=== PATIENT | female | born 1935 | race Caucasian/White ===

== ENCOUNTER → 2016-07-18 | Outpatient (CLI) | payer MEDICARE, MEDICAID ==
[~2016-07-18] MED LIST: ACT35 PO; ASPI-1035 PO; DOCU100T8 PO; ESOM20CA PO; GEMF600T3 PO; METF500T4 PO; RISE5TAB PO
== END | disposition home or self-care (01) ==
LOC: CARD 08:16
PROVIDERS: ATTEND Psychiatry & Neurology Neurology
DX: R41.3 Other amnesia (principal)

== ENCOUNTER 2016-11-01 09:03 | Inpatient (IN) | payer MEDICARE, MEDICAID ==
[~2016-11-01] VITALS: Ht 154.9 cm; Wt 56.4 kg
[~2016-11-01 09:03] MED LIST changes: +ACT5 PO; -ASPI-1035 PO; +ASPI-1159 PO; -RISE5TAB PO
[2016-11-01 09:46] LABS: BASOPHILS % 0.8 % (0.0-2.0); EOSINOPHILS % 11.2 % (0.0-5.0); HEMATOCRIT. 41.2 % (36.0-48.0); HEMOGLOBIN. 13.5 g/dL (12.0-16.0); LYMPHOCYTES % 26.6 % (20.0-50.0); MEAN CORPUSCULAR HEMOGLOBIN 26.2 pg (28.0-32.0); MEAN CORPUSCULAR VOLUME 79.9 fL (81.0-99.0); MEAN PLATELET VOLUME 7.6 fl (7.4-10.4); MONOCYTES % 8.9 % (2.0-8.0); NEUTROPHILS % 52.5 % (40.0-76.0); PLATELET 262 x1000/uL (130-400); RED BLOOD CELL COUNT 5.16 mill/uL (4.2-5.4); RED CELL DISTRIBUTION WIDTH 14.7 % (11.6-14.6)
[2016-11-01] MEDS ORDERED: ONDANSETRON HCL 4MG/2ML VIAL IV STA (09:49)
[2016-11-01] MEDS ORDERED: MORPHINE SULFATE 4 MG/ML CPJ (NOT FOR IM USE) IV STA (09:49)
[2016-11-01] MEDS ORDERED: ASPIRIN 81MG TABLET PO STA (09:49)
[2016-11-01] MEDS ORDERED: NITROGLYCERIN OINT 1GM/INCH UDPKT TD STA (09:49)
[2016-11-01 09:51] LABS: INR 1.1; PARTIAL THROMBOPLASTIN TIME 27.4 sec (23.4-31.0); PROTHROMBIN TIME 11.1 sec (9.4-11.6)
[2016-11-01 09:54] LABS: CARBON DIOXIDE 30 mEq/L (21-32); CHLORIDE 106 mEq/L (98-107)
[2016-11-01 10:00] LABS: CREATINE KINASE 182 IU/L (26-192); TROPONIN I < 0.02 ng/mL (0.00-0.04)
[2016-11-01] MEDS ORDERED: DIPHENHYDRAMINE 25MG CAPSULE PO ONE (10:00)
[2016-11-01 10:02] LABS: CREATINE KINASE MB FRACTION 2.6 ng/mL (0.5-3.6)
[2016-11-01 10:12] LABS: CLARITY URINE CLEAR (CLEAR); COLOR URINE YELLOW (YELLOW); GLUCOSE URINE NEGATIVE (NEGATIVE); KETONES URINE NEGATIVE (NEGATIVE); LEUKOCYTE ESTERASE URINE NEGATIVE (NEGATIVE); NITRITE URINE NEGATIVE (NEGATIVE); OCCULT BLOOD URINE NEGATIVE (NEGATIVE); PH URINE 7.5 (4.5-8.0); PROTEIN URINE NEGATIVE (NEGATIVE); SPECIFIC GRAVITY URINE 1.016 (1.005-1.030); UROBILINOGEN URINE 0.2 E.U./dL (0.2-1.0)
[2016-11-01] MEDS ORDERED: HYDROCODONE/ACETAMINOPHEN 5/325MG TABLET PO PRN (16:45)
[2016-11-01] MEDS ORDERED: ONDANSETRON HCL 4MG/2ML VIAL IV PRN (16:45)
[2016-11-01] MEDS ORDERED: ACETAMINOPHEN 325MG TABLET PO PRN (16:45)
[2016-11-01] MEDS ORDERED: IPRATROPIUM/ALBUTEROL 0.5-3(2.5)MG/3ML NEB INH PRN (16:45)
[2016-11-01] MEDS ORDERED: CLONIDINE 0.1MG TABLET PO PRN (16:45)
[2016-11-01] MEDS ORDERED: ENOXAPARIN 40MG/0.4ML SYR SUBCUT SCH (18:00)
[2016-11-01 20:00] VITALS: BP 95/54
[2016-11-01 23:35] LABS: CREATINE KINASE 134 IU/L (26-192); TROPONIN I < 0.02 ng/mL (0.00-0.04)
[2016-11-02] VITALS: BP 96/57
[2016-11-02 04:00] VITALS: BP 104/54
[2016-11-02 07:53] LABS: CREATINE KINASE 123 IU/L (26-192); HDL CHOLESTEROL 43 mg/dL (40-59); LDL CHOLESTEROL 73 mg/dL (5-100); T4 FREE 0.94 ng/dL (0.76-1.46); TROPONIN I < 0.02 ng/mL (0.00-0.04)
[2016-11-02 08:00] VITALS: BP 111/68
[2016-11-02] MEDS ORDERED: ASPIRIN 81MG EC TABLET PO SCH (09:00)
[2016-11-02] MEDS ORDERED: IOHEXOL-350 100 ML BOTTLE ONE (11:18)
[2016-11-02] MEDS ORDERED: SODIUM CHLORIDE 0.9% 10ML VIAL ONE (11:18)
[2016-11-02 12:00] VITALS: BP 104/57
[2016-11-02] MEDS ORDERED: PREDNISONE 20MG TABLET PO NR (12:00)
[2016-11-02 16:00] VITALS: BP 105/69
[2016-11-02 17:21] VITALS: BP 105/69
[2016-11-02] MEDS ORDERED: HYDROCORTISONE 1% OINT 28.35GM TOP SCH (21:00)
== END 2016-11-02 18:20 | disposition home or self-care (01) | DRG 313 ==
LOC: ER 09:03 → 7WST 10:38 → EDBEDREQ 10:40 → ENRESERV 15:35
PROVIDERS: ADMIT Internal Medicine; ATTEND Internal Medicine
DX: R07.89 Other chest pain (principal); E11.9 Type 2 diabetes mellitus without complications; I10 Essential (primary) hypertension; E78.00 Pure hypercholesterolemia, unspecified; E78.5 Hyperlipidemia, unspecified; L50.9 Urticaria, unspecified; G89.29 Other chronic pain; Z79.82 Long term (current) use of aspirin; Z79.84 Long term (current) use of oral hypoglycemic drugs; Z79.899 Other long term (current) drug therapy; Z87.442 Personal history of urinary calculi
CPT/HCPCS: 36415; 71010; 71275; 80053; 80061; 81003; 82550; 82553; 82962; 83690; 83880; 84439; 84443; 84484; 85025; 85610; 85730; 93005; 93306; 96374; 96375; 99291; A4216; J1650; J2270; J2405; J7512; Q0163; Q9967

== ENCOUNTER 2017-01-04 03:33 | Emergency (ER) | payer MEDICARE, MEDICAID ==
[~2017-01-04] VITALS: Ht 154.9 cm; Wt 61.0 kg
[~2017-01-04 03:33] MED LIST changes: -ACT35 PO
[2017-01-04] MEDS ORDERED: DIPHENHYDRAMINE 25MG CAPSULE PO ONE (04:45)
[2017-01-04 05:19] VITALS: BP 128/71
== END 2017-01-04 05:20 | disposition home or self-care (01) ==
LOC: ER 03:34
DX: T78.40XA Allergy, unspecified, initial encounter (principal); E78.00 Pure hypercholesterolemia, unspecified; E11.9 Type 2 diabetes mellitus without complications; F17.200 Nicotine dependence, unspecified, uncomplicated; Z79.82 Long term (current) use of aspirin
CPT/HCPCS: 99283; Q0163

== ENCOUNTER → 2018-04-04 | Outpatient (CLI) | payer MEDICAID, MEDICARE ==
[~2018-04-04] MED LIST changes: -GEMF600T3 PO; +GEMF600T4 PO; +METF-414 PO; -METF500T4 PO
== END | disposition home or self-care (01) ==
LOC: MRI 09:52
PROVIDERS: ATTEND Neurological Surgery
DX: M48.02 Spinal stenosis, cervical region (principal); M50.222 Other cervical disc displacement at C5-C6 level
CPT/HCPCS: 72141

== ENCOUNTER → 2018-11-05 | Outpatient (CLI) | payer MEDICARE, MEDICAID ==
[~2018-11-05] MED LIST changes: -ASPI-1159 PO; +ASPI-1393 PO; -GEMF600T4 PO; +GEMF600T5 PO
== END | disposition home or self-care (01) ==
LOC: MRI 08:28
PROVIDERS: ATTEND Neurological Surgery
DX: M48.02 Spinal stenosis, cervical region (principal)
CPT/HCPCS: 72141

== ENCOUNTER 2018-12-08 06:01 | Inpatient (IN) | payer MEDICARE, MEDICAID ==
[~2018-12-08] VITALS: Ht 153.7 cm; Wt 62.6 kg
[2018-12-08] VITALS (37 sets, daily range): BP systolic 84–142; BP diastolic 47–86
[~2018-12-08 06:01] MED LIST changes: -ACT5 PO; +CLON0.5T23 PO; -ESOM20CA PO; +OMEP20CA5 PO
[2018-12-08] MEDS ORDERED: LACTATED RINGERS 1,000 ML IV SCH (07:25)
[2018-12-08] MEDS ORDERED: LIDOCAINE HCL/EPINEPHRINE 1%-EPI 1:100,000 20 ML VIAL ONE (07:50)
[2018-12-08] MEDS ORDERED: NORMAL SALINE 0.9% 10 ML SYR ONE (07:50)
[2018-12-08] MEDS ORDERED: THROMBIN (BOVINE) 5000 UNITS/VIAL TOP ONE (07:50)
[2018-12-08] MEDS ORDERED: BACITRACIN 15GM TUBE TOP ONE (07:50)
[2018-12-08] MEDS ORDERED: BACITRACIN 50,000 UNITS/VIAL ONE (07:51)
[2018-12-08] MEDS ORDERED: SUCCINYLCHOLINE CHLORIDE 200MG/10ML IV ONE (09:09)
[2018-12-08] MEDS ORDERED: MIDAZOLAM HCL 2 MG/2 ML VIAL ONE ×2 (09:10→10:35)
[2018-12-08] MEDS ORDERED: LIDOCAINE HCL/PF 1% 10 MG/ML 5ML VIAL ONE (09:10)
[2018-12-08] MEDS ORDERED: FENTANYL CITRATE/PF 50MCG/ML 2ML VIAL ONE (09:10)
[2018-12-08] MEDS ORDERED: PROPOFOL 200MG/20ML VIAL IV ONE (09:11)
[2018-12-08] MEDS ORDERED: NICARDIPINE 100 MG in SODIUM CHLORIDE 0.9% 60 ML IV PRN (10:15)
[2018-12-08] MEDS ORDERED: HYDROCODONE/ACETAMINOPHEN 5/325MG TABLET PO PRN ×2 (10:15→13:30)
[2018-12-08] MEDS ORDERED: ONDANSETRON HCL 4MG/2ML INJ IV PRN ×2 (10:15→13:30)
[2018-12-08] MEDS ORDERED: CEFAZOLIN SODIUM 1000MG/VIAL ONE (10:20)
[2018-12-08] MEDS ORDERED: SODIUM CHLORIDE 0.9% 10ML VIAL ONE (10:20)
[2018-12-08] MEDS ORDERED: ROCURONIUM BROMIDE 10MG/ML VIAL 5ML IV ONE (10:59)
[2018-12-08] MEDS ORDERED: GLYCOPYRROLATE 0.2 MG/ML 2ML VIAL ONE (12:10)
[2018-12-08] MEDS ORDERED: NALOXONE INJ IV PRN (13:15)
[2018-12-08] MEDS ORDERED: DIPHENHYDRAMINE INJ IV PRN (13:15)
[2018-12-08] MEDS ORDERED: ONDANSETRON INJ IV PRN (13:15)
[2018-12-08] MEDS: DEXT 5%/LACTATED RINGERS 1,000 ML IV SCH (13:26)
[2018-12-08] MEDS: DEXAMETHASONE 4MG/ML 1ML VIAL IV SCH ×2 (13:26→17:46)
[2018-12-08] MEDS ORDERED: NA PHOS,M-B/NA PHOS,DI-BA ENEMA 118ML PR PRN (13:30)
[2018-12-08] MEDS ORDERED: DOCUSATE SODIUM 100MG CAPSULE PO PRN (13:30)
[2018-12-08] MEDS ORDERED: LORAZEPAM 0.5MG TABLET PO PRN (13:30)
[2018-12-08] MEDS ORDERED: CLONIDINE 0.1MG TABLET PO PRN (13:30)
[2018-12-08] MEDS ORDERED: IPRATROPIUM/ALBUTEROL 0.5-3(2.5)MG/3ML NEB NEB PRN (13:30)
[2018-12-08] MEDS ORDERED: GUAIFENESIN 200MG/10ML SUGAR FREE UDC PO PRN (13:30)
[2018-12-08] MEDS ORDERED: DEXTROSE 50% WATER 50ML SYRINGE IV PRN (13:30)
[2018-12-08] MEDS ORDERED: MAGNESIUM/ALUMINUM HYDROXIDE/SIMETHICONE 30ML UDC PO PRN (13:30)
[2018-12-08] MEDS ORDERED: ACETAMINOPHEN 650MG SUPP PR PRN (13:30)
[2018-12-08] MEDS ORDERED: DIPHENHYDRAMINE 50MG/ML VIAL IV PRN (13:30)
[2018-12-08] MEDS ORDERED: MORPHINE PCA 50MG/50ML IV PRN (14:00)
[2018-12-08] MEDS ORDERED: CEFAZOLIN SODIUM 1000MG/VIAL IV SCH (14:00)
[2018-12-08] MEDS: CEFAZOLIN 1000MG PREMIX 50 ML IV SCH ×2 (14:04→21:25)
[2018-12-08] MEDS: BLOOD SUGAR DIAGNOSTIC STRIP TEST SCH ×2 (14:08→19:02)
[2018-12-08] MEDS: FAMOTIDINE 20MG/2ML VIAL IV SCH (14:10)
[2018-12-08] MEDS: INSULIN LISPRO 100 UNITS/ML SUBCUT SCH ×2 (14:10→19:05)
[2018-12-08 15:09] LABS: HEMATOCRIT. 38.4 % (36.0-48.0); HEMOGLOBIN. 12.7 g/dL (12.0-16.0); MEAN CORPUSCULAR HEMOGLOBIN 25.4 pg (28.0-32.0); MEAN CORPUSCULAR VOLUME 77.1 fL (81.0-99.0); MEAN PLATELET VOLUME 8.1 fl (7.4-10.4); PLATELET 239 x1000/uL (130-400); RED BLOOD CELL COUNT 4.99 mill/uL (4.2-5.4); RED CELL DISTRIBUTION WIDTH 14.8 % (11.6-14.6)
[2018-12-08 15:15] LABS: CHLORIDE 108 mEq/L (98-107)
[2018-12-08 16:12] LABS: PLATELET ESTIMATE NORMAL
[2018-12-08 17:58] LABS: CLARITY URINE CLEAR (CLEAR); COLOR URINE YELLOW (YELLOW); KETONES URINE NEGATIVE (NEGATIVE); LEUKOCYTE ESTERASE URINE NEGATIVE (NEGATIVE); NITRITE URINE NEGATIVE (NEGATIVE); OCCULT BLOOD URINE 1+ (NEGATIVE); PROTEIN URINE NEGATIVE (NEGATIVE); SPECIFIC GRAVITY URINE 1.016 (1.005-1.030); UROBILINOGEN URINE 0.2 E.U./dL (0.2-1.0)
[2018-12-08 18:16] LABS: *BARBITURATES SCREEN URINE NEGATIVE (NEGATIVE); CANNABINOID URINE SCREEN NEGATIVE (NEGATIVE); METHADONE URINE SCREEN NEGATIVE (NEGATIVE); OPIATES URINE SCREEN PRESUMTIVE POSITIVE (NEGATIVE); PHENCYCLIDINE URINE SCREEN NEGATIVE (NEGATIVE)
[2018-12-08 18:17] LABS: *AMPHETAMINES SCREEN URINE NEGATIVE (NEGATIVE); *BENZODIAZEPINES SCREEN URINE PRESUMTIVE POSITIVE (NEGATIVE); *COCAINE SCREEN URINE NEGATIVE (NEGATIVE)
[2018-12-09] VITALS (25 sets, daily range): BP systolic 80–126; BP diastolic 42–80
[2018-12-09] MEDS: DEXAMETHASONE 4MG/ML 1ML VIAL IV SCH ×3 (00:43→12:23)
[2018-12-09] MEDS: DEXT 5%/LACTATED RINGERS 1,000 ML IV SCH ×3 (00:44→16:10)
[2018-12-09] MEDS: INSULIN LISPRO 100 UNITS/ML SUBCUT SCH ×5 (00:50→23:21)
[2018-12-09 05:28] LABS: HEMATOCRIT. 36.7 % (36.0-48.0); HEMOGLOBIN. 11.7 g/dL (12.0-16.0); MEAN CORPUSCULAR HEMOGLOBIN 24.9 pg (28.0-32.0); MEAN CORPUSCULAR VOLUME 78.3 fL (81.0-99.0); MEAN PLATELET VOLUME 8.3 fl (7.4-10.4); PLATELET 236 x1000/uL (130-400); RED BLOOD CELL COUNT 4.69 mill/uL (4.2-5.4); RED CELL DISTRIBUTION WIDTH 15.1 % (11.6-14.6)
[2018-12-09 05:34] LABS: CHLORIDE 107 mEq/L (98-107)
[2018-12-09 05:44] LABS: LDL CHOLESTEROL 63 mg/dL (5-100)
[2018-12-09 05:46] LABS: T4 FREE 1.18 ng/dL (0.76-1.46)
[2018-12-09 05:47] LABS: HDL CHOLESTEROL 49 mg/dL (40-59)
[2018-12-09] MEDS: BLOOD SUGAR DIAGNOSTIC STRIP TEST SCH ×5 (06:01→23:21)
[2018-12-09] MEDS: CEFAZOLIN 1000MG PREMIX 50 ML IV SCH ×2 (06:08→14:31)
[2018-12-09] MEDS: FAMOTIDINE 20MG/2ML VIAL IV SCH (08:55)
[2018-12-09 09:36] LABS: PLATELET ESTIMATE NORMAL
[2018-12-10] VITALS (25 sets, daily range): BP systolic 98–158; BP diastolic 45–96
[2018-12-10] MEDS: DEXT 5%/LACTATED RINGERS 1,000 ML IV SCH ×2 (02:11→12:17)
[2018-12-10 05:07] LABS: CHLORIDE 110 mEq/L (98-107)
[2018-12-10 05:10] LABS: HEMOGLOBIN 10.9 g/dL (12.0-16.0); MEAN CORPUSCULAR HEMOGLOBIN 25.3 pg (28.0-32.0); MEAN CORPUSCULAR VOLUME 78.8 fL (81.0-99.0); PLATELET 226 x1000/uL (130-400); RED BLOOD CELL COUNT 4.32 mill/uL (4.2-5.4); RED CELL DISTRIBUTION WIDTH 15.4 % (11.6-14.6)
[2018-12-10] MEDS: INSULIN LISPRO 100 UNITS/ML SUBCUT SCH ×4 (06:00→23:26)
[2018-12-10] MEDS: BLOOD SUGAR DIAGNOSTIC STRIP TEST SCH ×4 (06:21→23:25)
[2018-12-10] MEDS: FAMOTIDINE 20MG/2ML VIAL IV SCH (08:55)
[2018-12-10] MEDS: MORPHINE SULFATE 4 MG/ML CPJ (NOT FOR IM USE) IV PRN (08:56)
[2018-12-10] MEDS: ACETAMINOPHEN 325MG TABLET PO PRN (19:50)
[2018-12-11] VITALS (48 sets, daily range): BP systolic 86–155; BP diastolic 49–86
[2018-12-11] MEDS: MORPHINE SULFATE 4 MG/ML CPJ (NOT FOR IM USE) IV PRN (00:10)
[2018-12-11 05:02] LABS: HEMATOCRIT 37.7 % (36.0-48.0); HEMOGLOBIN 12.2 g/dL (12.0-16.0); MEAN CORPUSCULAR HEMOGLOBIN 25.2 pg (28.0-32.0); MEAN CORPUSCULAR VOLUME 78.1 fL (81.0-99.0); PLATELET 224 x1000/uL (130-400); RED BLOOD CELL COUNT 4.84 mill/uL (4.2-5.4); RED CELL DISTRIBUTION WIDTH 15.2 % (11.6-14.6)
[2018-12-11 05:12] LABS: CHLORIDE 108 mEq/L (98-107)
[2018-12-11] MEDS: INSULIN LISPRO 100 UNITS/ML SUBCUT SCH ×3 (05:36→18:00)
[2018-12-11] MEDS: BLOOD SUGAR DIAGNOSTIC STRIP TEST SCH ×3 (05:36→18:00)
[2018-12-11] MEDS: DEXT 5%/LACTATED RINGERS 1,000 ML IV SCH (05:37)
[2018-12-11] MEDS: AMLODIPINE 2.5MG TABLET PO SCH (08:35)
[2018-12-11] MEDS: FAMOTIDINE 20MG/2ML VIAL IV SCH (08:35)
[2018-12-11] MEDS ORDERED: LACTULOSE 20G/30ML UDC PO NR (13:30)
[2018-12-12] VITALS (26 sets, daily range): BP systolic 82–145; BP diastolic 45–115
[2018-12-12 05:17] LABS: HEMATOCRIT 39.4 % (36.0-48.0); HEMOGLOBIN 12.9 g/dL (12.0-16.0); MEAN CORPUSCULAR HEMOGLOBIN 25.4 pg (28.0-32.0); MEAN CORPUSCULAR VOLUME 77.4 fL (81.0-99.0); PLATELET 237 x1000/uL (130-400); RED BLOOD CELL COUNT 5.09 mill/uL (4.2-5.4); RED CELL DISTRIBUTION WIDTH 14.8 % (11.6-14.6)
[2018-12-12 05:22] LABS: CHLORIDE 108 mEq/L (98-107)
[2018-12-12] MEDS: INSULIN LISPRO 100 UNITS/ML SUBCUT SCH ×3 (06:00→12:00)
[2018-12-12] MEDS: BLOOD SUGAR DIAGNOSTIC STRIP TEST SCH ×3 (06:43→12:34)
[2018-12-12] MEDS: ACETAMINOPHEN 325MG TABLET PO PRN (07:35)
[2018-12-12] MEDS: AMLODIPINE 2.5MG TABLET PO SCH (08:30)
[2018-12-12] MEDS: FAMOTIDINE 20MG/2ML VIAL IV SCH (08:31)
[2018-12-12] MEDS ORDERED: POTASSIUM CHLORIDE 20MEQ TABLET SR PO NR (09:45)
== END 2018-12-12 16:45 | DRG 471 ==
LOC: OR 06:01 → MICUNO 06:02
PROVIDERS: ADMIT Neurological Surgery; ATTEND Internal Medicine
PROC: 0RG10A0 Fusion of Cervical Vertebral Joint with Interbody Fusion Device, Anterior Approach, Anterior Column, Open Approach (ICD-10-PCS; principal; 2018-12-11)
PROC: 01N10ZZ Release Cervical Nerve, Open Approach (ICD-10-PCS; 2018-12-11)
PROC: 00NW0ZZ Release Cervical Spinal Cord, Open Approach (ICD-10-PCS; 2018-12-11)
PROC: 0RB30ZZ Excision of Cervical Vertebral Disc, Open Approach (ICD-10-PCS; 2018-12-11)
DX: M47.12 Other spondylosis with myelopathy, cervical region (principal); G82.50 Quadriplegia, unspecified; E11.9 Type 2 diabetes mellitus without complications; M50.20 Other cervical disc displacement, unspecified cervical region; I10 Essential (primary) hypertension; K59.00 Constipation, unspecified; Q05.5 Cervical spina bifida without hydrocephalus; M48.02 Spinal stenosis, cervical region; M54.12 Radiculopathy, cervical region; M19.011 Primary osteoarthritis, right shoulder; M75.121 Complete rotator cuff tear or rupture of right shoulder, not specified as traumatic; Z98.1 Arthrodesis status; Z79.4 Long term (current) use of insulin
CPT/HCPCS: 36415; 71045; 72040; 72141; 73030; 73221; 76000; 80048; 80061; 80305; 81003; 82962; 83036; 84439; 84443; 85027; 86850; 86900; 88304; 88311; 92610; 93970; 94002; 95925; 95926; 95928; 95929; 97116; 97162; 97166; 97530; 97535; C1713; J0330; J0690; J1100; J1815; J2250; J2270; J2405; J2704; J3010; J3490; J7050; J7121; L0172

== ENCOUNTER 2018-12-12 17:00 | Inpatient (IN) | payer MEDICARE, MEDICAID ==
[~2018-12-12] VITALS: Ht 153.7 cm; Wt 62.6 kg
[2018-12-12] MEDS ORDERED: DOCUSATE SODIUM 100MG CAPSULE PO PRN (19:00)
[2018-12-12] MEDS ORDERED: DEXTROSE 50% WATER 50ML SYRINGE IV PRN (19:00)
[2018-12-12] MEDS ORDERED: ACETAMINOPHEN 650MG SUPP PR PRN (19:00)
[2018-12-12] MEDS ORDERED: DIPHENHYDRAMINE 50MG/ML VIAL IV PRN (19:00)
[2018-12-12] MEDS ORDERED: MAGNESIUM/ALUMINUM HYDROXIDE/SIMETHICONE 30ML UDC PO PRN (19:00)
[2018-12-12] MEDS ORDERED: NA PHOS,M-B/NA PHOS,DI-BA ENEMA 118ML PR PRN (19:00)
[2018-12-12] MEDS ORDERED: ONDANSETRON HCL 4MG TABLET PO PRN (19:00)
[2018-12-12] MEDS ORDERED: BLOOD SUGAR DIAGNOSTIC STRIP TEST SCH (19:00)
[2018-12-12] MEDS ORDERED: NALOXONE HCL 0.4 MG/ML 1ML VIAL IV PRN (19:00)
[2018-12-12] MEDS ORDERED: LORAZEPAM 0.5MG TABLET PO PRN (19:00)
[2018-12-12] MEDS ORDERED: IPRATROPIUM/ALBUTEROL 0.5-3(2.5)MG/3ML NEB HHN PRN (19:00)
[2018-12-12] MEDS ORDERED: CLONIDINE 0.1MG TABLET PO PRN (19:00)
[2018-12-12] MEDS ORDERED: GUAIFENESIN 200MG/10ML SUGAR FREE UDC PO PRN (19:00)
[2018-12-12] MEDS ORDERED: INSULIN LISPRO 100 UNITS/ML SUBCUT SCH (19:00)
[2018-12-12] MEDS ORDERED: MORPHINE SULFATE 4 MG/ML CPJ (NOT FOR IM USE) IV PRN (19:00)
[2018-12-12] MEDS ORDERED: HYDROCODONE/ACETAMINOPHEN 5/325MG TABLET PO PRN (19:00)
[2018-12-12 20:00] VITALS: BP 112/66
[2018-12-13 08:00] VITALS: BP 128/72
[2018-12-13] MEDS ORDERED: FAMOTIDINE 20MG/2ML VIAL IV SCH (09:00)
[2018-12-13] MEDS: FAMOTIDINE 20MG TABLET PO SCH (09:06)
[2018-12-13] MEDS: AMLODIPINE 2.5MG TABLET PO SCH (09:06)
[2018-12-13] MEDS: INSULIN LISPRO 100 UNITS/ML SUBCUT SCH ×4 (12:00→21:33)
[2018-12-13] MEDS: BLOOD SUGAR DIAGNOSTIC STRIP TEST SCH ×4 (12:05→21:33)
[2018-12-13 20:00] VITALS: BP 121/68
[2018-12-13] MEDS: ACETAMINOPHEN 325MG TABLET PO PRN (23:13)
[2018-12-14] MEDS: BLOOD SUGAR DIAGNOSTIC STRIP TEST SCH ×4 (05:39→21:32)
[2018-12-14] MEDS: INSULIN LISPRO 100 UNITS/ML SUBCUT SCH ×4 (05:39→21:00)
[2018-12-14] MEDS ORDERED: DORZ10DR8 EACHEYE (06:49)
[2018-12-14] MEDS ORDERED: AZOPT EACHEYE (06:49)
[2018-12-14] MEDS ORDERED: BEPO10DR EACHEYE (06:49)
[2018-12-14] MEDS ORDERED: LATA2.5D2 EACHEYE (06:49)
[2018-12-14] MEDS ORDERED: TIMO15DR12 EACHEYE (06:49)
[2018-12-14 08:00] VITALS: BP 102/57
[2018-12-14] MEDS: AMLODIPINE 2.5MG TABLET PO SCH (09:52)
[2018-12-14] MEDS: FAMOTIDINE 20MG TABLET PO SCH (09:52)
[2018-12-14 20:00] VITALS: BP 118/77
[2018-12-15] MEDS: ACETAMINOPHEN 325MG TABLET PO PRN (04:14)
[2018-12-15] MEDS: BLOOD SUGAR DIAGNOSTIC STRIP TEST SCH ×4 (05:52→21:31)
[2018-12-15] MEDS: INSULIN LISPRO 100 UNITS/ML SUBCUT SCH ×4 (05:53→21:00)
[2018-12-15 08:00] VITALS: BP 113/68
[2018-12-15] MEDS: AMLODIPINE 2.5MG TABLET PO SCH (08:43)
[2018-12-15] MEDS: FAMOTIDINE 20MG TABLET PO SCH (08:43)
[2018-12-15] MEDS ORDERED: BISACODYL 5MG TABLET PO PRN (11:15)
[2018-12-15 15:19] LABS: HEMATOCRIT 37.2 % (36.0-48.0); HEMOGLOBIN 12.3 g/dL (12.0-16.0); MEAN CORPUSCULAR HEMOGLOBIN 25.3 pg (28.0-32.0); MEAN CORPUSCULAR VOLUME 76.7 fL (81.0-99.0); PLATELET 253 x1000/uL (130-400); RED BLOOD CELL COUNT 4.85 mill/uL (4.2-5.4); RED CELL DISTRIBUTION WIDTH 14.6 % (11.6-14.6)
[2018-12-15 15:27] LABS: CHLORIDE 109 mEq/L (98-107)
[2018-12-15] MEDS: DORZOLAMIDE 2% OPHTH 10 ML BOTTLE BOTHEYE SCH ×2 (18:23→21:33)
[2018-12-15 20:00] VITALS: BP 117/62
[2018-12-15] MEDS: LORAZEPAM 0.5MG TABLET PO PRN (21:28)
[2018-12-15] MEDS: LATANOPROST 0.005% OPHTH DROPS 2.5ML BOTHEYE SCH (21:32)
[2018-12-16] MEDS: ACETAMINOPHEN 325MG TABLET PO PRN ×2 (00:09→22:43)
[2018-12-16] MEDS: BLOOD SUGAR DIAGNOSTIC STRIP TEST SCH ×4 (05:29→21:29)
[2018-12-16] MEDS: DORZOLAMIDE 2% OPHTH 10 ML BOTTLE BOTHEYE SCH ×3 (05:30→21:28)
[2018-12-16] MEDS: INSULIN LISPRO 100 UNITS/ML SUBCUT SCH ×4 (07:16→21:00)
[2018-12-16 08:03] VITALS: BP 119/75
[2018-12-16] MEDS: AMLODIPINE 2.5MG TABLET PO SCH (09:16)
[2018-12-16] MEDS: FAMOTIDINE 20MG TABLET PO SCH (09:16)
[2018-12-16] MEDS: TIMOLOL MALEATE 0.25% OPHTH DROPS 5ML EACHEYE SCH ×2 (15:40→21:30)
[2018-12-16 20:00] VITALS: BP 113/69
[2018-12-16] MEDS: LORAZEPAM 0.5MG TABLET PO PRN (21:27)
[2018-12-16] MEDS: LATANOPROST 0.005% OPHTH DROPS 2.5ML BOTHEYE SCH (21:28)
[2018-12-17] MEDS: BLOOD SUGAR DIAGNOSTIC STRIP TEST SCH (05:51)
[2018-12-17] MEDS: DORZOLAMIDE 2% OPHTH 10 ML BOTTLE BOTHEYE SCH (05:52)
[2018-12-17] MEDS: INSULIN LISPRO 100 UNITS/ML SUBCUT SCH (06:39)
[2018-12-17 08:28] VITALS: BP 142/67
[2018-12-17] MEDS: FAMOTIDINE 20MG TABLET PO SCH (08:41)
[2018-12-17] MEDS: AMLODIPINE 2.5MG TABLET PO SCH (08:41)
[2018-12-17] MEDS: TIMOLOL MALEATE 0.25% OPHTH DROPS 5ML EACHEYE SCH (08:42)
[2018-12-17 10:08] VITALS: BP 142/67
== END 2018-12-17 11:30 | disposition home health service (06) | DRG 93 ==
PROVIDERS: ADMIT Psychiatry & Neurology Neurology; ATTEND Internal Medicine
DX: G95.20 Unspecified cord compression (principal); M47.22 Other spondylosis with radiculopathy, cervical region; M75.101 Unspecified rotator cuff tear or rupture of right shoulder, not specified as traumatic; M19.011 Primary osteoarthritis, right shoulder; I10 Essential (primary) hypertension; E11.9 Type 2 diabetes mellitus without complications; R13.10 Dysphagia, unspecified; K59.00 Constipation, unspecified
CPT/HCPCS: 36415; 80048; 82962; 85027; 92610; 97110; 97112; 97116; 97162; 97166; 97530; 97535

== ENCOUNTER → 2019-03-24 | Outpatient (CLI) | payer MEDICARE, MEDICAID ==
[~2019-03-24] MED LIST changes: -ASPI-1393 PO; +ASPI-1497 PO; +AZOPT EACHEYE; +BEPO10DR EACHEYE; +DORZ10DR8 EACHEYE; +LATA2.5D2 EACHEYE; +OMEP20CA14 PO; -OMEP20CA5 PO; +TIMO15DR12 EACHEYE
== END | disposition home or self-care (01) ==
LOC: MRI 10:03
PROVIDERS: ATTEND Neurological Surgery
DX: S46.912A Strain of unspecified muscle, fascia and tendon at shoulder and upper arm level, left arm, initial encounter (principal); S46.212A Strain of muscle, fascia and tendon of other parts of biceps, left arm, initial encounter; M19.012 Primary osteoarthritis, left shoulder; M77.9 Enthesopathy, unspecified; X58.XXXA Exposure to other specified factors, initial encounter; Y93.89 Activity, other specified; Y92.89 Other specified places as the place of occurrence of the external cause; Y99.8 Other external cause status
CPT/HCPCS: 73221

== ENCOUNTER → 2019-09-08 | Outpatient (CLI) | payer MEDICARE, MEDICAID ==
[~2019-09-08] MED LIST changes: +BARIUM SULFATE 176 GM SUSP.RECON ONE
== END | disposition home or self-care (01) ==
LOC: RAD 08:08
PROVIDERS: ATTEND Internal Medicine Gastroenterology
DX: K22.8 Other specified diseases of esophagus (principal); R13.10 Dysphagia, unspecified; I70.0 Atherosclerosis of aorta; K22.2 Esophageal obstruction
CPT/HCPCS: 74220

== ENCOUNTER 2021-07-20 11:06 | Inpatient (IN) | payer MEDICARE, MEDICAID ==
[~2021-07-20] VITALS: Ht 152.4 cm; Wt 54.4 kg
[~2021-07-20 11:06] MED LIST changes: -BARIUM SULFATE 176 GM SUSP.RECON ONE; +DOCU100T28 PO; -DOCU100T8 PO; -GEMF600T5 PO; +GEMF600T90 PO; +LATA2.5D14 EACHEYE; -LATA2.5D2 EACHEYE
[2021-07-20 12:38] LABS: HEMATOCRIT. 42.2 % (36.0-48.0); HEMOGLOBIN. 13.8 g/dL (12.0-16.0); MEAN CORPUSCULAR HEMOGLOBIN 24.7 pg (28.0-32.0); MEAN CORPUSCULAR VOLUME 75.8 fL (81.0-99.0); RED BLOOD CELL COUNT 5.57 mill/uL (4.2-5.4)
[2021-07-20 12:44] LABS: CHLORIDE 111 mEq/L (98-107)
[2021-07-20 13:20] LABS: PLATELET ESTIMATE MARKEDLY DECREASED
[2021-07-20 13:23] LABS: PLATELET 26 x1000/uL (130-400)
[2021-07-20] MEDS ORDERED: METHYLPREDNISOLONE SOD SUCC 40 MG/ML VIAL IV ONE (14:15)
[2021-07-20] MEDS ORDERED: METHYLPREDNISOLONE SOD SUCC 40 MG/ML VIAL IV SCH (16:00)
[2021-07-20 16:48] LABS: HAPTOGLOBIN 158 mg/dL (30-200)
[2021-07-20 23:33] VITALS: BP 123/89
[2021-07-21 00:24] LABS: CLARITY URINE CLEAR (CLEAR); COLOR URINE YELLOW (YELLOW); KETONES URINE 2+ (NEGATIVE); LEUKOCYTE ESTERASE URINE TRACE (NEGATIVE); NITRITE URINE NEGATIVE (NEGATIVE); OCCULT BLOOD URINE 2+ (NEGATIVE); PH URINE 6.5 (4.5-8.0); PROTEIN URINE 3+ (NEGATIVE); SPECIFIC GRAVITY URINE 1.019 (1.005-1.030)
[2021-07-21] MEDS ORDERED: ACETAMINOPHEN 325MG TABLET PO PRN (01:15)
[2021-07-21] MEDS ORDERED: DEXTROSE 50% WATER 50ML SYRINGE IV PRN (01:15)
[2021-07-21] MEDS ORDERED: TEMAZEPAM 15MG CAPSULE PO PRN (01:15)
[2021-07-21] MEDS ORDERED: NON FORMULARY PATIENT HOME MED XX SCH ×2 (01:30)
[2021-07-21 04:00] VITALS: BP 147/81
[2021-07-21] MEDS: PANTOPRAZOLE 40MG DR TABLET PO SCH (06:23)
[2021-07-21] MEDS: BLOOD SUGAR DIAGNOSTIC STRIP TEST SCH ×4 (06:26→21:41)
[2021-07-21 06:54] LABS: HEMOGLOBIN. 13.5 g/dL (12.0-16.0); MEAN CORPUSCULAR HEMOGLOBIN 24.8 pg (28.0-32.0); MEAN CORPUSCULAR VOLUME 75.5 fL (81.0-99.0); MEAN PLATELET VOLUME 9.1 fl (7.4-10.4); RED BLOOD CELL COUNT 5.43 mill/uL (4.2-5.4); RED CELL DISTRIBUTION WIDTH 15.9 % (11.6-14.6)
[2021-07-21 07:13] LABS: CHLORIDE 110 mEq/L (98-107)
[2021-07-21 08:00] VITALS: BP 135/64
[2021-07-21 08:25] LABS: PLATELET ESTIMATE MARKEDLY DECREASED
[2021-07-21 08:26] LABS: PLATELET 46 x1000/uL (130-400)
[2021-07-21] MEDS: INSULIN LISPRO 100 UNITS/ML SUBCUT SCH ×4 (08:33→21:41)
[2021-07-21] MEDS: DORZOLAMIDE 2% OPHTH 10 ML BOTTLE EACHEYE SCH (08:35)
[2021-07-21] MEDS: TIMOLOL MALEATE 0.5% OPHTH DROPS 5ML EACHEYE SCH (08:35)
[2021-07-21] MEDS ORDERED: GEMF600T90 PO (09:49)
[2021-07-21] MEDS ORDERED: ASPI-986 MT (09:50)
[2021-07-21 12:00] VITALS: BP 134/62
[2021-07-21 16:00] VITALS: BP 144/79
[2021-07-21] MEDS ORDERED: BISACODYL 10MG SUPP PR PRN (17:15)
[2021-07-21] MEDS ORDERED: IPRATROPIUM/ALBUTEROL 0.5-3(2.5)MG/3ML NEB HHN PRN (17:15)
[2021-07-21] MEDS ORDERED: MORPHINE SULFATE 2 MG/ML CPJ (NOT FOR IM USE) IV PRN (17:15)
[2021-07-21] MEDS ORDERED: ONDANSETRON HCL 4MG/2ML INJ IV PRN (17:15)
[2021-07-21] MEDS ORDERED: NALOXONE HCL 0.4MG/ML VIAL IV PRN (17:45)
[2021-07-21] MEDS ORDERED: IOHEXOL-300 100 ML BOTTLE ONE (18:07)
[2021-07-21 20:00] VITALS: BP 118/65
[2021-07-21] MEDS ORDERED: LATANOPROST 0.005% OPHTH DROPS 2.5ML EACHEYE SCH (21:00)
[2021-07-21 22:04] LABS: HEPATITIS B SURFACE ANTIGEN NEGATIVE
[2021-07-22] VITALS: BP 132/87
[2021-07-22 04:00] VITALS: BP 112/67
[2021-07-22 05:39] LABS: HEMATOCRIT. 40.3 % (36.0-48.0); HEMOGLOBIN. 13.4 g/dL (12.0-16.0); MEAN CORPUSCULAR HEMOGLOBIN 24.9 pg (28.0-32.0); MEAN CORPUSCULAR VOLUME 74.8 fL (81.0-99.0); MEAN PLATELET VOLUME 9.3 fl (7.4-10.4); PLATELET 94 x1000/uL (130-400); RED BLOOD CELL COUNT 5.38 mill/uL (4.2-5.4); RED CELL DISTRIBUTION WIDTH 15.6 % (11.6-14.6)
[2021-07-22 06:16] LABS: CHLORIDE 111 mEq/L (98-107)
[2021-07-22] MEDS: PANTOPRAZOLE 40MG DR TABLET PO SCH (06:40)
[2021-07-22] MEDS: BLOOD SUGAR DIAGNOSTIC STRIP TEST SCH ×3 (06:44→17:20)
[2021-07-22] MEDS: INSULIN LISPRO 100 UNITS/ML SUBCUT SCH ×3 (07:10→17:50)
[2021-07-22 08:00] VITALS: BP 121/64
[2021-07-22] MEDS: TIMOLOL MALEATE 0.5% OPHTH DROPS 5ML EACHEYE SCH (09:18)
[2021-07-22] MEDS: DORZOLAMIDE 2% OPHTH 10 ML BOTTLE EACHEYE SCH (09:18)
[2021-07-22 12:00] VITALS: BP 130/64
[2021-07-22 12:50] LABS: PLATELET ESTIMATE DECREASED
[2021-07-22 16:00] VITALS: BP 115/64
[2021-07-22 18:06] VITALS: BP 115/64
[2021-07-22 18:31] LABS: TOTAL IRON BINDING CAPACITY 331 ug/dL (250-450)
[2021-07-22 19:15] LABS: FOLIC ACID (FOLATE) SERUM 19.1 ng/mL (>5.38)
[2021-07-23] MEDS ORDERED: FAMOTIDINE 20MG TABLET PO SCH (09:00)
[2021-07-24 09:06] LABS: IMMUNOGLOBULIN A 365 mg/dL (64-422); IMMUNOGLOBULIN G 1250 mg/dL (586-1602); IMMUNOGLOBULIN M 166 mg/dL (26-217)
[2021-07-25 13:07] LABS: ANTI-NUCLEAR ANTIBODIES DIRECT Negative (Negative)
== END 2021-07-22 18:47 | disposition home or self-care (01) | DRG 813 ==
LOC: ER 11:06 → 6WST 16:23 → EDBEDREQ 16:27 → EDBEDREQTM 16:27 → ENRESERV 21:31
PROVIDERS: ADMIT Internal Medicine; ATTEND Internal Medicine
DX: D69.3 Immune thrombocytopenic purpura (principal); N39.0 Urinary tract infection, site not specified; K57.32 Diverticulitis of large intestine without perforation or abscess without bleeding; D50.9 Iron deficiency anemia, unspecified; E11.9 Type 2 diabetes mellitus without complications; E78.5 Hyperlipidemia, unspecified; I25.10 Atherosclerotic heart disease of native coronary artery without angina pectoris; K73.9 Chronic hepatitis, unspecified; K76.0 Fatty (change of) liver, not elsewhere classified; I10 Essential (primary) hypertension; Z20.822 Contact with and (suspected) exposure to COVID-19; E78.00 Pure hypercholesterolemia, unspecified; K21.9 Gastro-esophageal reflux disease without esophagitis; R62.7 Adult failure to thrive; J44.9 Chronic obstructive pulmonary disease, unspecified; M19.011 Primary osteoarthritis, right shoulder; K83.8 Other specified diseases of biliary tract; Z79.899 Other long term (current) drug therapy; Z79.84 Long term (current) use of oral hypoglycemic drugs; Z79.82 Long term (current) use of aspirin; Z68.23 Body mass index [BMI] 23.0-23.9, adult; Z98.890 Other specified postprocedural states; H40.9 Unspecified glaucoma
CPT/HCPCS: 36415; 71045; 71260; 74177; 74181; 76700; 80048; 80053; 80076; 81003; 82607; 82728; 82746; 82784; 82962; 83010; 83036; 83540; 83550; 83605; 83615; 83880; 84439; 84443; 84484; 85025; 85384; 86038; 86334; 86705; 86709; 86803; 86850; 86900; 87340; 87426; 93005; 93970; 97162; 97535; 99285; J1815; J2920; Q9967